=== PATIENT | female | born 1955 | race Hispanic/Latino ===

== ENCOUNTER 2018-02-20 11:42 | Emergency (ER) | payer BC ==
[~2018-02-20] VITALS: Ht 162.6 cm; Wt 80.0 kg
[2018-02-20] MEDS ORDERED: METFORMIN500 MG PO (12:13)
[2018-02-20 13:19] LABS: URINE BILIRUBIN - DIPSTICK NEGATIVE (NEGATIVE); URINE BLOOD DIPSTICK NEGATIVE (NEGATIVE); URINE CLARITY CLEAR; URINE COLOR YELLOW; URINE GLUCOSE - DIPSTICK >=1000 mg/dL (NEGATIVE); URINE KETONE NEGATIVE (NEGATIVE); URINE LEUK ESTERASE NEGATIVE (NEGATIVE); URINE NITRITE - DIPSTICK NEGATIVE (Negative); URINE PH 5.5 (4.5-8.0); URINE PROTEIN - DIPSTICK NEGATIVE (NEG-TRACE); URINE UROBILINOGEN - DIPSTICK 0.2 E.U./dL (0.2)
[2018-02-20 13:22] LABS: HEMATOCRIT 39.3 % (37.0-47.0); HEMOGLOBIN 12.9 g/dl (12.0-16.0); IMMATURE GRANULOCYTES 0.9 % (0.0-1.0); MEAN CELL VOLUME 85.1 fL CALC (80.0-100.0); MEAN CORPUSCULAR HGB 27.9 pG CALC (26.0-32.0); MEAN CORPUSCULAR HGB CONC 32.8 g/L CALC (32.0-36.0); NEUT# 2.02 thou/uL (2.00-7.15); RED BLOOD COUNT 4.62 mill/uL (4.20-5.60); RED CELL DISTRI WIDTH 13.2 % (11.5-15.5)
[2018-02-20 13:29] LABS: ANION GAP 11 (6-22 (CALC)); BUN 16 mg/dL (8-23); BUN/CREATININE RATIO 31 (12-20 (CALC)); CARBON DIOXIDE 28 mmol/l (22-30); CHLORIDE 103 mmol/l (95-108); CREATININE 0.5 mg/dL (0.5-1.0); GFR > 60 ML/MIN (>=60 (CALC)); GFR FOR AFR.AMER. > 60 ML/MIN (>=60 (CALC)); SODIUM 137 mmol/l (137-146)
[2018-02-20] MEDS ORDERED: METFORMIN1000 MG PO (14:27)
[2018-02-20 14:35] VITALS: BP 155/78
== END 2018-02-20 14:43 | disposition home or self-care (01) | DRG 639 ==
LOC: ED 11:42
PROVIDERS: Family Medicine
DX: E11.65 Type 2 diabetes mellitus with hyperglycemia (principal)

== ENCOUNTER 2022-06-18 10:27 | Emergency (ER) | payer MEDICARE ==
[~2022-06-18] VITALS: Ht 162.6 cm; Wt 100.0 kg
[~2022-06-18 10:27] MED LIST: METFORMIN1000 MG PO; METFORMIN500 MG PO
[2022-06-18 10:40] VITALS: BP 177/69
[2022-06-18 11:00] VITALS: BP 148/85
[2022-06-18 11:30] VITALS: BP 158/88
[2022-06-18 12:01] VITALS: BP 146/73
[2022-06-18] MEDS ORDERED: PERCOCET 5/325M1 TAB PO ×2 (12:09→13:03)
[2022-06-18] MEDS ORDERED: NAPROXEN500 MG PO (12:09)
[2022-06-18 12:16] VITALS: BP 146/73
== END 2022-06-18 12:34 | disposition home or self-care (01) ==
LOC: ED 10:27
DX: S82.001A Unspecified fracture of right patella, initial encounter for closed fracture (principal); E11.9 Type 2 diabetes mellitus without complications; W01.0XXA Fall on same level from slipping, tripping and stumbling without subsequent striking against object, initial encounter; Y93.E5 Activity, floor mopping and cleaning; Y92.009 Unspecified place in unspecified non-institutional (private) residence as the place of occurrence of the external cause; Z79.84 Long term (current) use of oral hypoglycemic drugs